=== PATIENT | male | born 1965 | race African-American/Black ===

== ENCOUNTER 2024-03-15 20:10 | Emergency (ER) | payer BC ==
[2024-03-15 20:17] VITALS: RESP 18; TEMP 98.4; BMI 26.2
[2024-03-15 21:07] LABS: BASO % 0.5 % (0-2.0); EOS % 0.9 % (0-4.5); HEMATOCRIT 43.2 % (35.4-49); HEMOGLOBIN 14.6 GM/dL (11.7-16.9); LYMPH % 43.3 % (8-40); MCH 30.7 pg (25.7-33.7); MCHC 33.9 g/dl (32.0-35.9); MEAN CELL VOLUME 90.8 fl (80-96); MEAN PLT VOLUME 8.8 fl (7.5-11.1); MONO % 8.8 % (3.8-10.2); NEUT % 46.5 % (42.8-82.8); PLATELET COUNT 164 10^3/uL (134-434); RBC 4.76 M/mm3 (4.00-5.60); RDW 12.5 % (11.9-15.9); WHITE BLOOD COUNT 6.6 K/mm3 (4.0-10.0)
[2024-03-15] MEDS: SODIUM CHLORIDE 0.9% 500 ML INFUS.BAG IV ONE (21:14)
[2024-03-15 21:17] LABS: VENOUS O2 SATURATION 72.6 % (70-80); VENOUS PCO2 47.6 mmHg (38-52); VENOUS PH 7.384 (7.310-7.410)
[2024-03-15 21:21] LABS: PH,URINE 6.5 (5.0-8.0); URINE APPEARANCE CLEAR; URINE BILIRUBIN NEGATIVE (NEGATIVE); URINE COLOR YELLOW; URINE GLUCOSE (UA) 3+ (NEGATIVE); URINE KETONE NEGATIVE (NEGATIVE); URINE LEUK ESTERASE NEGATIVE (NEGATIVE); URINE NITRITE NEGATIVE (NEGATIVE); URINE PROTEIN NEGATIVE (NEGATIVE)
[2024-03-15 21:39] LABS: CHLORIDE 94 mmol/L (98-107); POTASSIUM 4.2 mmol/L (3.5-5.1); SODIUM 130 mmol/L (136-145)
[2024-03-15 21:41] LABS: ALBUMIN 3.6 g/dl (3.4-5.0); ANION GAP 8 mmol/L (4-13); CALCIUM 9.1 mg/dL (8.5-10.1); CO2 28 mmol/L (21-32)
[2024-03-15 21:45] LABS: CREATININE 1.3 mg/dL (0.55-1.3); SGOT/AST 16 U/L (15-37); SGPT/ALT 28 U/L (13-61)
[2024-03-15 21:46] LABS: BILIRUBIN,TOTAL 0.7 mg/dL (0.2-1); TOT PROT 7.3 g/dl (6.4-8.2)
[2024-03-15 21:47] LABS: ALK PHOS 122 U/L (45-117)
[2024-03-15 21:55] LABS: GLUCOSE,RANDOM 668 mg/dL (74-106)
[2024-03-15] MEDS ORDERED: INSULIN ASPART SLIDING SCALE (NOVOLOG) 1 VIAL SQ ONE (22:13)
[2024-03-15] MEDS: INSULIN (NOVOLOG) ASPART 100 UNITS/ML 10ML VIAL SQ ONE (22:15)
[2024-03-15] MEDS ORDERED: ATORVASTATIN CA 40 MG TABLET (FP) ONE (22:19)
[2024-03-15] MEDS ORDERED: CARVEDILOL 6.25 MG TABLET (FP) ONE (22:19)
[2024-03-15] MEDS: CARVEDILOL 12.5 MG TABLET (FP) PO ONE (22:23)
[2024-03-15] MEDS: ATORVASTATIN CA 40 MG TABLET (FP) PO ONE (22:23)
[2024-03-15 23:35] VITALS: BP 169/96; PULSE 73
== END 2024-03-16 01:00 | disposition home or self-care (01) ==
LOC: JER 20:10
PROC: 3E013VG Introduction of Insulin into Subcutaneous Tissue, Percutaneous Approach (ICD-10-PCS; principal; 2024-03-15)
DX: R73.9 Hyperglycemia, unspecified (principal); R35.0 Frequency of micturition; H53.149 Visual discomfort, unspecified
CPT/HCPCS: 36415; 80053; 81003; 82010; 82803; 82962; 83036; 85025; 86803; 87086; 93005; 93010; 99284-25